=== PATIENT | male | born 1980 | race Two or more races ===

== ENCOUNTER 2017-06-18 18:41 | Emergency (ER) | payer BC ==
[2017-06-18] MEDS ORDERED: Pantoprazole 40 MG Vial IVPUSH ONE (19:07)
[2017-06-18] MEDS ORDERED: Sodium Chloride 0.9% 1,000 ML IV ONE (19:07)
[2017-06-18] MEDS ORDERED: Ketorolac 30 MG/ML SDV IVPUSH ONE (19:13)
--- NOTE | 2017-06-18 19:27 | EDM.PDOC ---
ED HPI GENERAL MEDICAL PROBLEM - General Chief Complaint: Abdominal Pain Stated Complaint: NAUSEA, UPSET STOMACH Time Seen by Provider: 06/18/17 19:10 Source of Information: Reports: Patient History Limitations: Reports: No Limitations - History of Present Illness INITIAL COMMENTS - FREE TEXT/NARRATIVE: History of present illness: [37-year-old Croatian-speaking male comes in complaining of abdominal pain. Patient indicates that he has had upper epigastric pain with increasing frequency and severity the last few days. Patient attempted to self medicate with Pepto-Bismol as well as some [id number] Nexium without any real relief noted so subsequently has brought a friend in to interpret and try to get to the bottom of what his stomach pain meds.] Review of systems: As per history of present illness and below otherwise all systems reviewed and negative. Past medical history: As per history of present illness and as reviewed below otherwise noncontributory. Surgical history: As per history of present illness and as reviewed below otherwise noncontributory. Social history: No reported history of drug or alcohol abuse. Family history: As per history of present illness and as reviewed below otherwise noncontributory. Physical exam: HEENT: Atraumatic, normocephalic, pupils reactive, negative for conjunctival pallor or scleral icterus, mucous membranes moist, throat clear, neck supple, nontender, trachea midline. Lungs: Clear to auscultation, breath sounds equal bilaterally, chest nontender. Heart: S1S2, regular, negative for clicks, rubs, or JVD. Abdomen: Soft, nondistended, diffuse nonspecific tenderness Negative for masses or hepatosplenomegaly. Negative for costovertebral tenderness. Pelvis: Stable nontender. Genitourinary: Deferred. Rectal: Deferred. Extremities: Atraumatic, negative for cords or calf pain. Neurovascular unremarkable. Neuro: Awake, alert, oriented. Cranial nerves II through XII unremarkable. Cerebellum unremarkable. Motor and sensory unremarkable throughout. Exam nonfocal. Global assessment is benign save the subjective complaint as noted in the history of present illness Diagnostics: [CBC, CMP] Therapeutics: [IV fluids, Toradol, Protonix] Impression: [Gastritis] Plan: [Up with PCP] Definitive disposition and diagnosis as appropriate pending reevaluation and review of above. abdomen Pain Score (Numeric/FACES): 5 - Related Data Allergies Allergy/AdvReac Type Severity Reaction Status Date / Time No Known Allergies Allergy Verified 06/18/17 18:46 Home Meds: Home Meds Esomeprazole [NexIUM] 40 mg PO BEDTIME #30 cap 06/18/17 [Rx] metFORMIN [Glucophage XR] 500 mg PO TID 06/18/17 [History] Past Medical History - Past Health History Medical/Surgical History: Denies Medical/Surgical History Endocrine/Metabolic History: Reports: Diabetes, Type II - Past Surgical History GI Surgical History: Reports: Appendectomy Social & Family History - Family History Family Medical History: Noncontributory - Tobacco Use Smoking Status *Q: Current Every Day Smoker Years of Tobacco use: 17 Packs/Tins Daily: 1 - Recreational Drug Use Recreational Drug Use: No ED ROS GENERAL - Review of Systems Review Of Systems: See Below (See history of present illness) ED EXAM, GI/ABD - Physical Exam Exam: See Below (See history of present illness) Course - Vital Signs Last Recorded V/S: Last Vital Signs Temp 36.8 C 06/18/17 19:28 Pulse 75 06/18/17 19:28 Resp 16 06/18/17 19:28 BP 120/65 06/18/17 19:28 Pulse Ox 95 06/18/17 19:28 - Orders/Labs/Meds Orders: Active Orders 24 hr Category Date Time Status Abdomen Pelvis w Cont [CT] Stat Exams 06/18/17 20:29 Ordered Labs: Laboratory Tests 06/18/17 06/18/17 Range/Units 19:10 19:10 WBC 9.96 (4.0-11.0) K/uL RBC 4.84 (4.50-5.90) M/uL Hgb 14.0 (13.0-17.0) g/dL Hct 41.9 (38.0-50.0) % MCV 86.6 (80.0-98.0) fL MCH 28.9 (27.0-32.0) pg MCHC 33.4 (31.0-37.0) g/dL RDW Std Deviation 41.5 (28.0-62.0) fl RDW Coeff of Meera 13 (11.0-15.0) % Plt Count 291 (150-400) K/uL MPV 8.90 (7.40-12.00) fL Neut % (Auto) 57.1 (48.0-80.0) % Lymph % (Auto) 29.7 (16.0-40.0) % [place] % (Auto) 10.6 (0.0-15.0) % Eos % (Auto) 2.2 (0.0-7.0) % Baso % (Auto) 0.4 (0.0-1.5) % Neut # (Auto) 5.7 (1.4-5.7) K/uL Lymph # (Auto) 3.0 H (0.6-2.4) K/uL [place] # (Auto) 1.1 H (0.0-0.8) K/uL Eos # (Auto) 0.2 (0.0-0.7) K/uL Baso # (Auto) 0.0 (0.0-0.1) K/uL Nucleated RBC % 0.0 /100WBC Nucleated RBCs # 0 K/uL Sodium 141 (136-146) mmol/L Potassium 4.3 (3.5-5.1) mmol/L Chloride 104 (98-110) mmol/L Carbon Dioxide 26 (21-31) mmol/L BUN 16 (6.0-23.0) mg/dL Creatinine 1.1 (0.6-1.5) mg/dL Est Cr Clr Drug Dosing TNP Estimated GFR (MDRD) > 60.0 ml/min Glucose 109 (60-110) mg/dL Calcium 9.7 (8.8-10.8) mg/dL Total Bilirubin 0.4 (0.1-1.5) mg/dL AST 21 (5-40) IU/L ALT 29 (8-54) IU/L Alkaline Phosphatase 61 (40-150) Total Protein 7.6 (6.0-8.0) g/dL Albumin 4.6 (3.5-5.0) g/dL Globulin 3.0 (2.0-3.5) g/dL Albumin/Globulin Ratio 1.5 (1.3-2.8) Meds: Medications Discontinued Medications Generic Name Dose Route Start Last Admin Trade Name Freq PRN Reason Stop Dose Admin Sodium Chloride 1,000 mls @ 999 mls/hr 06/18/17 19:07 06/18/17 19:16 Normal Saline IV 06/18/17 20:07 999 mls/hr STAT ONE Administration Ketorolac Tromethamine 30 mg 06/18/17 19:13 06/18/17 19:24 Toradol IVPUSH 06/18/17 19:14 30 mg ONETIME ONE Administration Pantoprazole Sodium 80 mg 06/18/17 19:07 06/18/17 19:17 Protonix Iv IVPUSH 06/18/17 19:08 80 mg .BOLUS ONE Administration Departure - Departure Time of Disposition: 21:53 Disposition: Home, Self-Care 01 Condition: Good Clinical Impression: Gastritis - Discharge Information Prescriptions: Esomeprazole [NexIUM] 40 mg PO BEDTIME #30 cap Instructions: Abdominal Pain, Adult, [id number] Forms: ED Department Discharge Additional Instructions: The following information is given to patients seen in the emergency department who are being discharged to home. This information is to outline your options for follow-up care. We provide all patients seen in our emergency department with a follow-up referral. The need for follow-up, as well as the timing and circumstances, are variable depending upon the specifics of your emergency department visit. If you don't have a primary care physician on staff, we will provide you with a referral. We always advise you to contact your personal physician following an emergency department visit to inform them of the circumstance of the visit and for follow-up with them and/or the need for any referrals to a consulting specialist. The emergency department will also refer you to a specialist when appropriate. This referral assures that you have the opportunity for follow-up care with a specialist. All of these measure are taken in an effort to provide you with optimal care, which includes your follow-up. Under all circumstances we always encourage you to contact your private physician who remains a resource for coordinating your care. When calling for follow-up care, please make the office aware that this follow-up is from your recent emergency room visit. If for any reason you are refused follow-up, please contact the [facility] Emergency Department at and asked to speak to the emergency department charge nurse. Take medication as directed Skip your metformin for the next 3 days Stop drinking alcohol Return to ED as needed as discussed - My Orders Last 24 Hours: My Active Orders 06/18/17 20:29 Abdomen Pelvis w Cont [CT] Stat - Assessment/Plan Last 24 Hours: My Active Orders 06/18/17 20:29 Abdomen Pelvis w Cont [CT] Stat
[2017-06-18 19:47] LABS: CHLORIDE,CL 104 mmol/L (98-110); SODIUM,NA 141 mmol/L (136-146)
[2017-06-18 22:14] VITALS: BP 118/73
[2017-06-19] MEDS ORDERED: Iopamidol 755 MG/ML 500 ML Multipack Bottle IVPUSH STA (04:41)
--- NOTE | 2017-06-21 10:06 | CT ---
EXAM DATE: 06/18/17 PATIENT'S AGE: 37 Patient: ÁNGEL RUIZ Facility: [place], [place] Site . Site : 1980 Study: CT Abdomen/Pelvis [id number]/4/2017 9:26:59 PM Ordering Physician: Doctor Kaur Final Report: INDICATION: abd pain, nausea X4 days, black stool CT ABDOMEN AND PELVIS WITH CONTRAST TECHNIQUE: Multidetector CT imaging was performed through the abdomen and pelvis following intravenous contrast administration. Coronal and sagittal reconstructions were generated. COMPARISON: None. FINDINGS: Included portions of the lower chest show the lung bases to be clear. The liver, spleen, gallbladder, pancreas, adrenals, and kidneys show no significant findings. Bowel loops are of normal caliber and demonstrate no wall thickening. The appendix is surgically absent. No free fluid or free air is identified. The abdominal aorta appears normal. No abnormally enlarged lymph nodes are seen. The urinary bladder, prostate, and seminal vesicles are within normal limits. Visualized bones show no significant findings. IMPRESSION: No acute abnormality identified. No cause for the patient`s symptoms is evident. DONNA NEELY MD [employer] Dictated by: Med Neely MD @ 06/18/2017 21:39:59 (Electronic Signature) Report Signed by Proxy. [facility] HOSPITALVelia
== END 2017-06-18 22:11 | disposition home or self-care (01) ==
LOC: MW.ED 18:41
DX: K29.70 Gastritis, unspecified, without bleeding (principal); F17.210 Nicotine dependence, cigarettes, uncomplicated; Z79.84 Long term (current) use of oral hypoglycemic drugs
CPT/HCPCS: 74177; 80053; 85025; 96361; 96374; 96375; 99284; C9113; J1885; J7040